=== PATIENT | female | born 1925 | race Hispanic/Latino ===

== ENCOUNTER 2016-12-31 10:13 | Observation (INO) | payer MEDICARE, OTHER, MEDICAID ==
[2016-12-31] MEDS ORDERED: Sodium Chloride 0.9% 1,000 ML IV STA ×2 (11:03→15:00)
[2016-12-31 11:43] LABS: BASO # 0.1 K/uL (0.0-0.2); BASO % 0.8 % (0.0-2.0); EOS # 0.3 K/uL (0.0-0.7); EOS % 3.3 % (0.0-4.0); HEMATOCRIT 39.5 % (34.0-47.0); LYMPH # 3.2 K/uL (1.0-4.3); LYMPH % 41.2 % (20.0-40.0); MEAN CELL VOLUME 88.6 fl (81.0-99.0); MEAN CORPUSCULAR HEMOGLOBIN 29.3 pg (27.0-31.0); MEAN CORPUSCULAR HGB CONC 33.1 g/dL (33.0-37.0); MEAN PLATELET VOLUME 8.9 fl (7.2-11.7); MONO # 0.7 K/uL (0.0-0.8); MONO % 9.6 % (0.0-10.0); NEUT # 3.5 K/uL (1.8-7.0); NEUT % 45.1 % (50.0-75.0); RED CELL DISTRIBUTION WIDTH 14.9 % (11.5-14.5); WHITE BLOOD COUNT 7.7 K/uL (4.8-10.8)
--- NOTE | 2016-12-31 11:46 | RAD ---
HISTORY: hypotension COMPARISON: Frontal chest 06/12/2014 FINDINGS: LUNGS: History volume appears improved. No acute infiltrate is appreciate bilaterally. Mammillation right diaphragm is noted. PLEURA: No significant pleural effusion identified, no pneumothorax apparent. CARDIOVASCULAR: Normal. OSSEOUS STRUCTURES: No significant abnormalities. VISUALIZED UPPER ABDOMEN: Normal. OTHER FINDINGS: None. IMPRESSION: No acute cardiopulmonary disease or suspicious interval change is identified at this time.
[2016-12-31 12:06] LABS: ALB/GLOB RATIO 1.3 (1.0-2.1); ALKALINE PHOSPHATASE 104 U/L (38-126); ALT/SGPT 25 U/L (9-52); AST/SGOT 24 U/L (14-36); BILIRUBIN,TOTAL 0.6 mg/dl (0.2-1.3); BLOOD UREA NITROGEN 18 mg/dl (7-17); CALCIUM 9.5 mg/dL (8.4-10.2); CARBON DIOXIDE 26 mmol/L (22-30); CHLORIDE 104 mmol/L (98-107); GFR AFRICAN-AMERICAN > 60; GLUCOSE,RANDOM 137 mg/dL (65-105); POTASSIUM 3.9 MMOL/L (3.6-5.0); SODIUM 141 mmol/l (132-148); TOTAL PROTEIN 7.4 G/DL (6.3-8.2)
--- NOTE | 2016-12-31 12:06 | ED PDOC ---
HPI: General Adult Time Seen by Provider: 12/31/16 10:30 Chief Complaint (Nursing): Medical Clearance Chief Complaint (Provider): Medical clearance History Per: Patient History/Exam Limitations: no limitations Onset/Duration Of Symptoms: Days (today) Additional Complaint(s): Rose Mary Elizabeth is a 89 year old female, with a past medical history of hypotension and hypercholesterolemia, who was sent to the emergency department by her [facility] for low blood pressure. Patient reports she was slightly weak this morning. . She denies any shortness of breath, abdominal pain , vomit, and diarrhea. No further medical complaints. PMD: Sheldon Posey Past Medical History Reviewed: Historical Data, Nursing Documentation, Vital Signs Vital Signs: Last Vital Signs Temp 97.8 F 01/01/17 12:00 Pulse 79 01/01/17 12:00 Resp 20 01/01/17 12:00 BP 112/64 01/01/17 12:00 Pulse Ox 95 01/01/17 12:00 - Medical History PMH: Dementia, Depression, HTN, Hypercholesterolemia Denies: Chronic Kidney Disease - Surgical History Surgical History: Carotid Endarterectomy (Left) - Family History Family History: States: No Known Family Hx - Social History Ex-Smoker (has not smoked in the last 12 months): Yes Alcohol: None Drugs: Denies - Home Medications Home Medications: Ambulatory Orders Medication Instructions Recorded Aspirin [Aspirin EC] 81 mg PO DAILY 06/12/14 ALPRAZolam [Xanax] 0.25 mg PO DAILY PRN 12/31/16 Levocetirizine Dihydrochloride 5 mg PO DAILY 12/31/16 [Xyzal] [id number] Ethyl Esters 1 GM 2 gm PO BID 12/31/16 [Lovaza] Aspirin [Ecotrin] 81 mg PO DAILY #30 tab 01/01/17 Atorvastatin [Lipitor] 20 mg PO DAILY #30 tab 01/01/17 Ciprofloxacin [Cipro] 500 mg PO Q12 #10 tab 01/01/17 Folic Acid 1 mg PO DAILY #30 tab 01/01/17 Glimepiride [amaRYL] 2 mg PO DAILY #30 tab 01/01/17 Linagliptin [Tradjenta] 5 mg PO DAILY #30 tab 01/01/17 Montelukast [Singulair] 10 mg PO HS #30 tab 01/01/17 - Allergies Allergies/Adverse Reactions: Allergies Allergy/AdvReac Type Severity Reaction Status Date / Time Penicillins Allergy RASH Verified 12/31/16 10:38 Review of Systems ROS Statement: Except As Marked, All Systems Reviewed And Found Negative Constitutional: Positive for: Weakness (generalized) Respiratory: Negative for: Shortness of Breath Gastrointestinal: Negative for: Vomiting, Abdominal Pain, Diarrhea Physical Exam - Reviewed Nursing Documentation Reviewed: Yes Vital Signs Reviewed: Yes - Physical Exam Appears: Positive for: Well, Non-toxic, No Acute Distress Head Exam: Positive for: ATRAUMATIC, NORMAL INSPECTION, NORMOCEPHALIC Skin: Positive for: Normal Color, Warm, Dry Eye Exam: Positive for: Normal appearance ENT: Positive for: Normal ENT Inspection Neck: Positive for: Normal, Painless ROM Cardiovascular/Chest: Positive for: Regular Rate, Rhythm Respiratory: Positive for: Normal Breath Sounds. Negative for: Respiratory Distress Gastrointestinal/Abdominal: Positive for: Normal Exam, Bowel Sounds, Soft Extremity: Positive for: Normal ROM Neurologic/Psych: Positive for: Alert (x3), Oriented (x3). Negative for: Motor/ Sensory Deficits - Laboratory Results Result Diagrams: 01/01/17 05:25 01/01/17 05:25 - ECG O2 Sat by Pulse Oximetry: 98 (RA) Pulse Ox Interpretation: Normal Medical Decision Making Medical Decision Making: Initial Impression: Isolated hypotension Initial Plan: --Comp Metabolic Panel --NS IV 1, 000ml at 1,000 mls/hr --Urine culture --Urinalysis --Chest portale X-ray --reevaluation 1144 Chest X-ray FINDINGS: LUNGS: History volume appears improved. No acute infiltrate is appreciate bilaterally. Mammillation right diaphragm is noted. PLEURA: No significant pleural effusion identified, no pneumothorax apparent. CARDIOVASCULAR: Normal. OSSEOUS STRUCTURES: No significant abnormalities. VISUALIZED UPPER ABDOMEN: Normal. OTHER FINDINGS: None. IMPRESSION: No acute cardiopulmonary disease or suspicious interval change is identified at this time. 1435 -labs reveal UTI, blood pressure improved transiently. but then went back down to 77 systolic. pt labs show signs of dehydration - BUN elevated ,specific gravity urine as well 15:54 --Patient has been accepted by hospitalist, Dr. Quinones (covers dr posey) --Antibiotics ordered for UTI --Patient and family are agreeable to plan Scribe Attestation: Documented by Julius Kaba & Rosita Levi, acting as a scribe for Stevie Alcala MD Provider Scribe Attestation: All medical record entries made by the Scribe were at my direction and personally dictated by me. I have reviewed the chart and agree that the record accurately reflects my personal performance of the history, physical exam, medical decision making, and the department course for this patient. I have also personally directed, reviewed, and agree with the discharge instructions and disposition. Disposition - Clinical Impression Clinical Impression: UTI (urinary tract infection), Hypotension - Patient ED Disposition Is Patient to be Admitted: Yes - Disposition Disposition Time: 13:00 Condition: FAIR
[2016-12-31 14:34] LABS: RBC URINE 1 /hpf (0-3); URINE BACTERIA RARE (<OCC); URINE BILIRUBIN NEGATIVE (NEGATIVE); URINE BLOOD NEGATIVE (NEGATIVE); URINE COLOR YELLOW (YELLOW); URINE GLUCOSE (UA) NEG (Normal); URINE KETONE NEGATIVE (NEGATIVE); URINE LEUKOCYTE ESTERASE MOD Leu/uL (Negative); URINE PROTEIN NEGATIVE (NEGATIVE); URINE UROBILINOGEN 0.2-1.0 mg/dL (0.2-1.0); WBC URINE 19 /hpf (0-5)
[2016-12-31] MEDS ORDERED: Ciprofloxacin 400mg/200ml D5W 400 MG/200 ML BAG IVPB STA (14:58)
[2016-12-31] MEDS ORDERED: Ciprofloxacin 400mg/200ml D5W 400 MG/200 ML BAG IVPB ONE (15:34)
[2016-12-31 15:42] LABS: VENOUS BLOOD GAS PCO2 57 mmHg (40-60); VENOUS BLOOD PH 7.37 (7.32-7.43)
--- NOTE | 2016-12-31 16:42 | CP.PCM.HP ---
History of Present Illness - History of Present Illness History of Present Illness: CC: aid brought me HPI: 89 year old female accompanied by niece PMH Alzheimer's disease ( pleasantly demented), DM2, hyperlipidemia, COPD, presents after her aid found patient's blood pressure to be approximately in the 60s systolic by her home health aide. Patient felt mildly "off balance" earlier this morning, but has felt at baseline. In the emergency room, patient was bolused 1L NS, BP briefly came back up to approximately 120s, however when rechecked came back down to 75- 80s systolic. UA showed +LE, afebrile, no WBC, give one dose of Cipro. Pt also found to be azotemic BUN 18, she admits to having poor PO intake. According to niece, patient does not drink unless given water to drink. Currently patient BP 77/50's HR 94, RR 18 SAT 98% RA. Pt will be given additional liter of fluids, last ECHO did show EF appx 70%, MILD pulmonary hypertension, mod MR. ROS: per HPI, 12 systems reviewed and negative PMD: Dr. Posey PMH: Alzheimer's disease (pleasantly demented), DM2, hyperlipidemia, COPD PSH: carotid endarterectomy FH: denies SH: denies tobacco, ETOH, IVDU, quit smoking 15 years ago Meds: as below Allergies: NKDA Vitals: reviewed and currently stable Exam: GEN: WDWN, alert, cooperative, pleasantly demented HEENT: NCAT, PERRL, EOMI NECK: supple, no JVD, no lymphadenopathy CARDIAC: +S1S2 RRR LUNG: CTAB No WRR ABD: SOFT NT ND BSX4 NO MASSES NO HSM EXT: +pedal pulses, equal strength NEURO: AAOx3 SKIN warm, dry PSYCH normal mood, normal affect Labs: 12/31/16 11:28 12/31/16 11:28 Rads: Active Medications: Insulin Lispro [humALOG] See Protocol SC ACHS Montelukast [Singulair] 10 mg PO HS Aspirin [Ecotrin] 81 mg PO DAILY Atorvastatin [Lipitor] 20 mg PO DAILY Enoxaparin [Lovenox] 40 mg SC DAILY Folic Acid 1 mg PO DAILY Glimepiride [amaRYL] 2 mg PO DAILY Linagliptin [Tradjenta] 5 mg PO DAILY Assessment and Plan: 89 year old female accompanied by niece PMH Alzheimer's disease (pleasantly demented), DM2, hyperlipidemia, COPD, presents after her aid found patient's blood pressure to be approximately in the 60s systolic by her home health aide. Patient felt mildly "off balance" earlier this morning, but has felt at baseline. In the emergency room, patient was bolused 1L NS, BP briefly came back up to approximately 120s, however when rechecked came back down to 75-80s systolic. UA showed +LE, afebrile, no WBC, give one dose of Cipro. Pt also found to be azotemic BUN 18, she admits to having poor PO intake. According to niece, patient does not drink unless given water to drink. Currently patient BP 77/50's HR 94, RR 18 SAT 98% RA. Pt will be given additional liter of fluids, last ECHO did show EF appx 70%, MILD pulmonary hypertension, mod MR. HYPOTENSION DUE TO DEHYDRATION patient received 1L in ER, currently receiving second liter of fluids Azotemic 18, BUN normal repeat chem tomorrow monitor BP on tele 2014 ECHO did show EF appx 70%, MILD pulmonary hypertension, mod MR. UTI afebrile, no leukocytosis continue Cipro urine cultures pending WEAKNESS likely from dehydration Physical and Occupational therapy for evaluation for possible subacute rehab ALZHEIMER'S DEMENTIA stable at baseline CAD cont ASA COPD cont Singulair DM cont glimipiride and tradjenta accuchecks sliding scale coverage lovenox for VTE ppx Present on Admission - Present on Admission Any Indicators Present on Admission: No Past Patient History - Past Medical History & Family History Past Medical History?: Yes - Past Social History Alcohol: None Drugs: Denies - CARDIAC Hx Hypercholesterolemia: Yes Hx Hypertension: Yes - PULMONARY Hx Respiratory Disorders: No - NEUROLOGICAL Hx Dementia: Yes - HEENT Hx HEENT Problems: Yes Hx Cataracts: Yes (cataract surgery) - RENAL Hx Chronic Kidney Disease: No - ENDOCRINE/METABOLIC Hx Endocrine Disorders: Yes Hx Diabetes Mellitus Type 2: Yes - HEMATOLOGICAL/ONCOLOGICAL Hx Blood Disorders: No - INTEGUMENTARY Hx Dermatological Problems: No - MUSCULOSKELETAL/RHEUMATOLOGICAL Hx Musculoskeletal Disorders: No Hx Falls: No - GASTROINTESTINAL Hx Gastrointestinal Disorders: No - GENITOURINARY/GYNECOLOGICAL Hx Genitourinary Disorders: No - PSYCHIATRIC Hx Depression: Yes - SURGICAL HISTORY Hx Carotid Endarterectomy: Yes (Left) - ANESTHESIA Hx Anesthesia: Yes Hx Anesthesia Reactions: No Meds Allergies/Adverse Reactions: Allergies Allergy/AdvReac Type Severity Reaction Status Date / Time Penicillins Allergy RASH Verified 12/31/16 10:38 Results - Vital Signs Recent Vital Signs: Last Vital Signs Temp 98.0 F 12/31/16 10:47 Pulse 94 H 12/31/16 10:47 Resp 18 12/31/16 10:47 BP 129/58 L 12/31/16 10:47 Pulse Ox 98 12/31/16 16:08 - Labs Result Diagrams: 12/31/16 11:28 12/31/16 11:28 Labs: Laboratory Results - last 24 hr 12/31/16 12/31/16 12/31/16 11:28 11:28 14:24 WBC 7.7 RBC 4.45 Hgb 13.1 Hct 39.5 MCV 88.6 MCH 29.3 MCHC 33.1 RDW 14.9 H Plt Count 261 MPV 8.9 Neut % (Auto) 45.1 L Lymph % (Auto) 41.2 H [place] % (Auto) 9.6 Eos % (Auto) 3.3 Baso % (Auto) 0.8 Neut # 3.5 Lymph # 3.2 [place] # 0.7 Eos # 0.3 Baso # 0.1 pO2 VBG pH VBG pCO2 VBG HCO3 VBG Total CO2 VBG O2 Sat (Calc) VBG Base Excess VBG Potassium Glucose Lactate FiO2 Sodium 141 Potassium 3.9 Chloride 104 Carbon Dioxide 26 Anion Gap 15 BUN 18 H Creatinine 0.8 Est GFR ( Amer) > 60 Est GFR (Non-Af Amer) > 60 Random Glucose 137 H Calcium 9.5 Total Bilirubin 0.6 AST 24 ALT 25 Alkaline Phosphatase 104 Total Protein 7.4 Albumin 4.2 Globulin 3.2 Albumin/Globulin Ratio 1.3 Venous Blood Potassium Urine Color Yellow Urine Clarity Slighty-cloudy Urine pH 5.0 Ur Specific [place] 1.013 Urine Protein Negative Urine Glucose (UA) Neg Urine Ketones Negative Urine Blood Negative Urine Nitrate Negative Urine Bilirubin Negative Urine Urobilinogen 0.2-1.0 Ur Leukocyte Esterase Mod Urine RBC (Auto) 1 Urine Microscopic WBC 19 H Ur Squamous Epith Cells < 1 Urine Bacteria Rare Hyaline Casts 0-2 12/31/16 15:35 WBC RBC Hgb Hct MCV MCH MCHC RDW Plt Count MPV Neut % (Auto) Lymph % (Auto) [place] % (Auto) Eos % (Auto) Baso % (Auto) Neut # Lymph # [place] # Eos # Baso # pO2 20 L VBG pH 7.37 VBG pCO2 57 VBG HCO3 27.8 VBG Total CO2 34.7 H VBG O2 Sat (Calc) 26.2 L VBG Base Excess 6.0 H VBG Potassium 3.5 L Glucose 67 Lactate 0.9 FiO2 21.0 Sodium 140.0 Potassium Chloride 106.0 Carbon Dioxide Anion Gap BUN Creatinine Est GFR ( Amer) Est GFR (Non-Af Amer) Random Glucose Calcium Total Bilirubin AST ALT Alkaline Phosphatase Total Protein Albumin Globulin Albumin/Globulin Ratio Venous Blood Potassium 3.5 L Urine Color Urine Clarity Urine pH Ur Specific [place] Urine Protein Urine Glucose (UA) Urine Ketones Urine Blood Urine Nitrate Urine Bilirubin Urine Urobilinogen Ur Leukocyte Esterase Urine RBC (Auto) Urine Microscopic WBC Ur Squamous Epith Cells Urine Bacteria Hyaline Casts
[2016-12-31] MEDS: Insulin Lispro (humaLOG) 100 Units/ml Inj SC SCH ×2 (18:17→22:46)
[2016-12-31] MEDS: Ciprofloxacin 400mg/200ml D5W 400 MG/200 ML BAG IVPB SCH (22:46)
[2017-01-01 06:26] LABS: BASO % 0.4 % (0.0-2.0); EOS # 0.3 K/uL (0.0-0.7); EOS % 4.8 % (0.0-4.0); HEMATOCRIT 37.2 % (34.0-47.0); LYMPH # 2.7 K/uL (1.0-4.3); LYMPH % 40.2 % (20.0-40.0); MEAN CELL VOLUME 89.3 fl (81.0-99.0); MEAN CORPUSCULAR HGB CONC 32.5 g/dL (33.0-37.0); MEAN PLATELET VOLUME 9.2 fl (7.2-11.7); MONO # 0.6 K/uL (0.0-0.8); MONO % 9.3 % (0.0-10.0); NEUT # 3.1 K/uL (1.8-7.0); NEUT % 45.3 % (50.0-75.0); WHITE BLOOD COUNT 6.8 K/uL (4.8-10.8)
[2017-01-01 06:41] LABS: BLOOD UREA NITROGEN 12 mg/dl (7-17); CALCIUM 8.9 mg/dL (8.4-10.2); CARBON DIOXIDE 27 mmol/L (22-30); CHLORIDE 107 mmol/L (98-107); GFR AFRICAN-AMERICAN > 60; GLUCOSE,RANDOM 129 mg/dL (65-105); POTASSIUM 4.2 MMOL/L (3.6-5.0); SODIUM 139 mmol/l (132-148)
[2017-01-01] MEDS ORDERED: GlipiZIDE 5 mg SR Tab PO SCH (08:00)
[2017-01-01 08:07] VITALS: RESP 20
[2017-01-01] MEDS ORDERED: Enoxaparin 40 mg Syringe SC SCH (09:00)
--- NOTE | 2017-01-01 09:25 | CP.PCM.PN ---
Subjective - Date & Time of Evaluation Date of Evaluation: 01/01/17 Time of Evaluation: 09:24 - Subjective Subjective: patient pleasantly demented this morning, feeling well no complaints BP stable no symptoms HD stable NAD to note, admission order placed in error this morning. patient to have been obs. Objective - Vital Signs/Intake and Output Vital Signs (last 24 hours): Temp Pulse Resp BP Pulse Ox 98.3 F 65 20 106/61 93 L 01/01/17 08:00 01/01/17 08:00 01/01/17 08:00 01/01/17 08:00 01/01/17 08:00 GEN: WDWN, alert, cooperative, pleasantly demented HEENT: NCAT, PERRL, EOMI NECK: supple, no JVD, no lymphadenopathy CARDIAC: +S1S2 RRR LUNG: CTAB No WRR ABD: SOFT NT ND BSX4 NO MASSES NO HSM EXT: +pedal pulses, equal strength NEURO: AAOx2 SKIN warm, dry PSYCH normal mood, normal affect - Medications Medications: Current Medications Aspirin (Ecotrin) 81 mg PO DAILY LEYDA Atorvastatin Calcium (Lipitor) 20 mg PO DAILY [facility] Enoxaparin Sodium (Lovenox) 40 mg SC DAILY LEYDA PRN Reason: Protocol Folic Acid (Folic Acid) 1 mg PO DAILY LEYDA Glipizide (Glucotrol Xl) 5 mg PO BRK [facility] Ciprofloxacin (Cipro 400mg/200ml Dsw) 400 mg in 200 mls @ 200 mls/hr IVPB Q12 LEYDA Last Admin: 12/31/16 22:46 Dose: 200 mls/hr Insulin Human Lispro (Humalog) 0 units SC ACHS LEYDA PRN Reason: Protocol Last Admin: 12/31/16 22:46 Dose: Not Given Montelukast Sodium (Singulair) 10 mg PO HS LEYDA Last Admin: 12/31/16 22:47 Dose: 10 mg Sitagliptin Phosphate (Januvia) 50 mg PO DAILY LEYDA - Labs Labs: 01/01/17 05:25 01/01/17 05:25 Assessment and Plan - Assessment and Plan (Free Text) Plan: Assessment and Plan: 89 year old female accompanied by niece PMH Alzheimer's disease (pleasantly demented), DM2, hyperlipidemia, COPD, presents after her aid found patient's blood pressure to be approximately in the 60s systolic by her home health aide. Patient felt mildly "off balance" earlier this morning, but has felt at baseline. In the emergency room, patient was bolused 1L NS, BP briefly came back up to approximately 120s, however when rechecked came back down to 75-80s systolic. UA showed +LE, afebrile, no WBC, give one dose of Cipro. Pt also found to be azotemic BUN 18, she admits to having poor PO intake. According to niece, patient does not drink unless given water to drink. Currently patient BP 77/50's HR 94, RR 18 SAT 98% RA. Pt will be given additional liter of fluids, last ECHO did show EF appx 70%, MILD pulmonary hypertension, mod MR. HYPOTENSION DUE TO DEHYDRATION patient received 2L NS with improvement of BP Azotemic 18 on admission, improved today BP improving, still mildly low, will monitor today repeat chem tomorrow monitor BP on tele 2014 ECHO did show EF appx 70%, MILD pulmonary hypertension, mod MR. UTI afebrile, no leukocytosis continue Cipro urine cultures pending WEAKNESS likely from dehydration Physical and Occupational therapy for evaluation for possible subacute rehab ALZHEIMER'S DEMENTIA stable at baseline CAD cont ASA COPD cont Singulair DM cont glimipiride and tradjenta accuchecks sliding scale coverage lovenox for VTE ppx
[2017-01-01] MEDS: Ciprofloxacin 400mg/200ml D5W 400 MG/200 ML BAG IVPB SCH (11:32)
[2017-01-01 12:28] VITALS: BP 112/64; PULSE 79; TEMP 97.8
--- NOTE | 2017-01-01 12:50 | CP.PCM.DIS ---
Provider - Provider Date of Admission: 12/31/16 14:30 Attending physician: Ofe Quinones DO Time Spent in preparation of Discharge (in minutes): 30 Diagnosis - Discharge Diagnosis (1) Hypotension Status: Acute (2) Dehydration Status: Acute Hospital Course - Lab Results Lab Results: Most Recent Lab Values WBC 6.8 K/uL (4.8-10.8) 01/01/17 05:25 RBC 4.16 Mil/uL (3.80-5.20) 01/01/17 05:25 Hgb 12.1 g/dL (12.0-16.0) 01/01/17 05:25 Hct 37.2 % (34.0-47.0) 01/01/17 05:25 MCV 89.3 fl (81.0-99.0) 01/01/17 05:25 MCH 29.0 pg (27.0-31.0) 01/01/17 05:25 MCHC 32.5 g/dL (33.0-37.0) L 01/01/17 05:25 RDW 15.0 % (11.5-14.5) H 01/01/17 05:25 Plt Count 235 K/uL (130-400) 01/01/17 05:25 MPV 9.2 fl (7.2-11.7) 01/01/17 05:25 Neut % (Auto) 45.3 % (50.0-75.0) L 01/01/17 05:25 Lymph % (Auto) 40.2 % (20.0-40.0) H 01/01/17 05:25 [place] % (Auto) 9.3 % (0.0-10.0) 01/01/17 05:25 Eos % (Auto) 4.8 % (0.0-4.0) H 01/01/17 05:25 Baso % (Auto) 0.4 % (0.0-2.0) 01/01/17 05:25 Neut # 3.1 K/uL (1.8-7.0) 01/01/17 05:25 Lymph # 2.7 K/uL (1.0-4.3) 01/01/17 05:25 Early # 0.6 K/uL (0.0-0.8) 01/01/17 05:25 Eos # 0.3 K/uL (0.0-0.7) 01/01/17 05:25 Baso # 0.0 K/uL (0.0-0.2) 01/01/17 05:25 pO2 20 mm/Hg (30-55) L 12/31/16 15:35 VBG pH 7.37 (7.32-7.43) 12/31/16 15:35 VBG pCO2 57 mmHg (40-60) 12/31/16 15:35 VBG HCO3 27.8 mmol/L 12/31/16 15:35 VBG Total CO2 34.7 mmol/L (22-28) H 12/31/16 15:35 VBG O2 Sat (Calc) 26.2 % (40-65) L 12/31/16 15:35 VBG Base Excess 6.0 mmol/L (0.0-2.0) H 12/31/16 15:35 VBG Potassium 3.5 mmol/L (3.6-5.2) L 12/31/16 15:35 Sodium 140.0 mmol/L (132-148) 12/31/16 15:35 Chloride 106.0 mmol/L (98-107) 12/31/16 15:35 Glucose 67 mg/dL (65-105) 12/31/16 15:35 Lactate 0.9 mmol/L (0.7-2.1) 12/31/16 15:35 FiO2 21.0 % 12/31/16 15:35 Sodium 139 mmol/l (132-148) 01/01/17 05:25 Potassium 4.2 MMOL/L (3.6-5.0) 01/01/17 05:25 Chloride 107 mmol/L (98-107) 01/01/17 05:25 Carbon Dioxide 27 mmol/L (22-30) 01/01/17 05:25 Anion Gap 9 (10-20) L 01/01/17 05:25 BUN 12 mg/dl (7-17) 01/01/17 05:25 Creatinine 0.7 mg/dL (0.7-1.2) 01/01/17 05:25 Est GFR ( Amer) > 60 01/01/17 05:25 Est GFR (Non-Af Amer) > 60 01/01/17 05:25 POC Glucose (mg/dL) 142 mg/dL (65-110) H 01/01/17 05:17 Random Glucose 129 mg/dL (65-105) H 01/01/17 05:25 Calcium 8.9 mg/dL (8.4-10.2) 01/01/17 05:25 Total Bilirubin 0.6 mg/dl (0.2-1.3) 12/31/16 11:28 AST 24 U/L (14-36) 12/31/16 11:28 ALT 25 U/L (9-52) 12/31/16 11:28 Alkaline Phosphatase 104 U/L (38-126) 12/31/16 11:28 Total Protein 7.4 G/DL (6.3-8.2) 12/31/16 11:28 Albumin 4.2 g/dL (3.5-5.0) 12/31/16 11:28 Globulin 3.2 gm/dL (2.2-3.9) 12/31/16 11:28 Albumin/Globulin Ratio 1.3 (1.0-2.1) 12/31/16 11:28 Venous Blood Potassium 3.5 mmol/L (3.6-5.2) L 12/31/16 15:35 Urine Color Yellow (YELLOW) 12/31/16 14:24 Urine Clarity Slighty-cloudy (Clear) 12/31/16 14:24 Urine pH 5.0 (5.0-8.0) 12/31/16 14:24 Ur Specific [place] 1.013 (1.003-1.030) 12/31/16 14:24 Urine Protein Negative mg/dL (NEGATIVE) 12/31/16 14:24 Urine Glucose (UA) Neg mg/dL (Normal) 12/31/16 14:24 Urine Ketones Negative mg/dL (NEGATIVE) 12/31/16 14:24 Urine Blood Negative (NEGATIVE) 12/31/16 14:24 Urine Nitrate Negative (NEGATIVE) 12/31/16 14:24 Urine Bilirubin Negative (NEGATIVE) 12/31/16 14:24 Urine Urobilinogen 0.2-1.0 mg/dL (0.2-1.0) 12/31/16 14:24 Ur Leukocyte Esterase Mod [place]/uL (Negative) 12/31/16 14:24 Urine RBC (Auto) 1 /hpf (0-3) 12/31/16 14:24 Urine Microscopic WBC 19 /hpf (0-5) H 12/31/16 14:24 Ur Squamous Epith Cells < 1 /hpf (0-5) 12/31/16 14:24 Urine Bacteria Rare (<OCC) 12/31/16 14:24 Hyaline Casts 0-2 /hpf (0-2) 12/31/16 14:24 - Hospital Course Hospital Course: 89 year old female accompanied by niece PMH Alzheimer's disease (pleasantly demented), DM2, hyperlipidemia, COPD, presents after her aid found patient's blood pressure to be approximately in the 60s systolic by her home health aide. Patient felt mildly "off balance" earlier this morning, but has felt at baseline. In the emergency room, patient was bolused 1L NS, BP briefly came back up to approximately 120s, however when rechecked came back down to 75-80s systolic. UA showed +LE, afebrile, no WBC, give one dose of Cipro. Pt also found to be azotemic BUN 18, she admits to having poor PO intake. According to niece, patient does not drink unless given water to drink. Currently patient BP 77/50's HR 94, RR 18 SAT 98% RA. Pt will be given additional liter of fluids, last ECHO did show EF appx 70%, MILD pulmonary hypertension, mod MR. Discussed extensively with niece yesterday and patient's brother today, who is POA. Brother wishes to take sister home, as he lives in the same building and also looks after her, along with home health aide. Patient stable and safe to be discharged home, per POA wishes, he does not wish for [facility] or residential at this time. HYPOTENSION DUE TO DEHYDRATION patient received 2L NS with improvement of BP Azotemic 18 on admission, improved today BP improved today. 2014 ECHO did show EF appx 70%, MILD pulmonary hypertension, mod MR. UTI afebrile, no leukocytosis continue Cipro as outpatient 5 days urine cultures pending WEAKNESS likely from dehydration Physical and Occupational therapy for evaluation for possible subacute rehab ALZHEIMER'S DEMENTIA stable at baseline CAD cont ASA COPD cont Singulair DM cont glimipiride and tradjenta accuchecks sliding scale coverage lovenox for VTE ppx Discharge Exam - Head Exam Additional comments: GEN: WDWN, alert, cooperative, pleasantly demented HEENT: NCAT, PERRL, EOMI NECK: supple, no JVD, no lymphadenopathy CARDIAC: +S1S2 RRR LUNG: CTAB No WRR ABD: SOFT NT ND BSX4 NO MASSES NO HSM EXT: +pedal pulses, equal strength NEURO: AAOx2 SKIN warm, dry PSYCH normal mood, normal affect Discharge Plan - Discharge Medications Prescriptions: Aspirin [Ecotrin] 81 mg PO DAILY #30 tab Atorvastatin [Lipitor] 20 mg PO DAILY #30 tab Ciprofloxacin [Cipro] 500 mg PO Q12 #10 tab Folic Acid 1 mg PO DAILY #30 tab Glimepiride [amaRYL] 2 mg PO DAILY #30 tab Linagliptin [Tradjenta] 5 mg PO DAILY #30 tab Montelukast [Singulair] 10 mg PO HS #30 tab - Follow Up Plan Condition: FAIR Disposition: HOME/ ROUTINE Additional Instructions: STOP ENALAPRIL MALEATE (VASOTEC) as this causes LOW BLOOD PRESSURE. follow up with your primary doctor in 1-2 days without fail return to the ED with any worsening or concerning symptoms.
[2017-01-01 20:47] VITALS: O2SAT 98
== END 2017-01-01 15:01 | disposition home health service (06) ==
LOC: H.ER 10:13 → H.ERHOLD 14:30 → EDBD 14:30 → H.TEL 20:07 → OBSVTOIN 01-01 10:19 → INTOOBSV 01-01 10:19
PROVIDERS: ADMIT Student in an Organized Health Care Education/Training Program; ATTEND Student in an Organized Health Care Education/Training Program
DX: I95.89 Other hypotension (principal); E86.0 Dehydration; G30.9 Alzheimer's disease, unspecified; F02.80 Dementia in other diseases classified elsewhere, unspecified severity, without behavioral disturbance, psychotic disturbance, mood disturbance, and anxiety; N39.0 Urinary tract infection, site not specified; R53.1 Weakness; Z88.0 Allergy status to penicillin; F32.9 Major depressive disorder, single episode, unspecified; I10 Essential (primary) hypertension; E78.00 Pure hypercholesterolemia, unspecified; E11.9 Type 2 diabetes mellitus without complications; E78.5 Hyperlipidemia, unspecified; J44.9 Chronic obstructive pulmonary disease, unspecified; R79.89 Other specified abnormal findings of blood chemistry; I25.10 Atherosclerotic heart disease of native coronary artery without angina pectoris
CPT/HCPCS: 36415; 71010; 80048; 80053; 81003; 82803; 82948; 85025; 87040; 87086; 87181; 96361; 96365; 96367; 96372; 96375; 97161; 99285; G0378; G8978; G8979; J0744; J1650; J7040